=== PATIENT | female | born 1995 | race Hispanic/Latino ===

== ENCOUNTER 2018-04-06 02:18 | Emergency (ER) | payer OTHER ==
[~2018-04-06] VITALS: Ht 149.9 cm; Wt 49.9 kg
[~2018-04-06 02:18] MED LIST: BUTALB-ACETAMI1 EACH PO; NAPROSYN500 M1 PO; ZOFRAN ODT4 M1 SL
--- NOTE | 2018-04-06 02:40 | ED GI/GU/ABDOMINAL COMPLAINT ---
History of Present Illness General Chief Complaint: Nausea, Vomiting, Diarrhea Stated Complaint: NAUSEA,VOMITING,DIZINESS PER PT Source: patient Exam Limitations: no limitations Vital Signs & Intake/Output Vital Signs & Intake/Output Vital Signs Date Time Temp Pulse Resp B/P B/P Pulse O2 O2 Flow FiO2 Mean Ox Delivery Rate 04/06 0418 98.6 67 18 106/7 98 Room Air 04/06 0227 84 20 116/79 97 Room Air Allergies Coded Allergies: No Known Allergies (04/01/18) Reconcile Medications Cyclobenzaprine HCl 10 MG TABLET 1 TAB PO 4 TIMES/DAY PRN MUSCLE SPASM Ibuprofen 600 MG TABLET 1 TAB PO TID PRN headache with food Triage Note: PER PT CO NAUSEA ON AND OFF FOR A COUPLE WEEKS DENIES VOMITING FEVER DIARRHEA NO URINE CO LMP 1 WEEK AGO NORMAL Triage Nurses Notes Reviewed? yes ? N Is pt currently ? No Onset: Gradual Duration: day(s):, waxing and waning Timing: recent history Location: NO ABDOMINAL PAIN Radiation: no radiation Modifying Factors: Worsens With: vomiting. Associated Symptoms: headache, nausea/vomiting HPI: 22 yo woman presents with nausea and headache for more than a week, intermittent. She notes that she vomited 1. She notes occasional photophobia. She has no vision change fever chills stiff neck. She notes that this is similar to prior headaches she has had in the past. She has no stuffy nose, sinus pressure, ear pain, dyspnea, fever. She is otherwise well and has no other concerns. Past History Travel History Traveled to [place] past 21 day No Medical History Any Pertinent Medical History? 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 No Review of Systems Review of Systems Constitutional: Reports: no symptoms. EENTM: Reports: no symptoms. Respiratory: Reports: no symptoms. Cardiovascular: Reports: no symptoms. GI: Reports: no symptoms. Genitourinary: Reports: no symptoms. Musculoskeletal: Reports: no symptoms. Skin: Reports: no symptoms. Neurological/Psychological: Reports: no symptoms. Hematologic/Endocrine: Reports: no symptoms. Immunologic/Allergic: Reports: no symptoms. All Other Systems: Reviewed and Negative Physical Exam Physical Exam General Appearance: well developed/nourished, mild distress Head: normal appearance, DIFFUSE SCALP MUSCULATURE TENDERNESS TO PALPATION Eyes: Bilateral: normal appearance, PERRL, EOMI. Ears, Nose, Throat, Mouth: hearing grossly normal, moist mucous membrane Neck: normal inspection, supple, full range of motion, normal alignment Respiratory: normal breath sounds, chest non-tender, no respiratory distress, quiet respiration, lungs clear Cardiovascular: regular rate/rhythm Gastrointestinal: normal bowel sounds, soft, non-tender, no organomegaly Back: normal inspection Extremities: normal range of motion Neurologic/Psych: no motor/sensory deficits, awake, alert, oriented x 3 Skin: intact, normal color, warm/dry Core Measures ACS in differential dx? No Sepsis Present: No Sepsis Focused Exam Completed? No Progress Differential Diagnosis: TENSION VS MIGRAINE VS OTHER HEADACHE Plan of Care: Orders Procedure Date/time Status URINE 04/06 231 Complete URINALYSIS 04/06 222 Complete TROPONIN LEVEL 04/06 222 Complete LIPASE 04/06 222 Complete HEPATIC FUNCTION PANEL 04/06 222 Complete CBC WITHOUT DIFFERENTIAL 04/06 222 Complete BASIC METABOLIC PANEL 04/06 222 Complete AMYLASE 04/06 222 Complete Laboratory Tests 04/06/18 0241: Anion Gap 11, Estimated GFR > 60, BUN/Creatinine Ratio 36.0 H, Glucose 100 H, Calcium 9.4, Total Bilirubin 1.6 H, Direct Bilirubin 0, AST 19, ALT 21, Alkaline Phosphatase 99, Troponin I < 0.01, Total Protein 7.5, Albumin 4.4, Amylase 95, Lipase 86, CBC w Diff NO MAN DIFF REQ, RBC 4.38, MCV 91.5, MCH 31.7 H, MCHC 34.6, RDW 13.4, MPV 7.5, Gran % 80.7 H, Lymphocytes % 13.2 L, Monocytes % 5.3, Eosinophils % 0.3, Basophils % 0.5, Absolute Granulocytes 9.0 H, Absolute Lymphocytes 1.5, Absolute Monocytes 0.6, Absolute Eosinophils 0, Absolute Basophils 0.1 04/06/18 0230: Urine Test NEGATIVE 04/06/18 0230: Urine Color YEL, Urine Clarity CLEAR, Urine pH 6.0, Ur Specific [place] >= 1.030 , Urine Protein NEG, Urine Ketones NEG, Urine Nitrite NEG, Urine Bilirubin NEG, Urine Urobilinogen 0.2, Ur Leukocyte Esterase NEG, Ur Microscopic EXAM NOT REQUIRED, Urine Hemoglobin NEG, Urine Glucose NEG Initial ED EKG: none Departure Departure Disposition: HOME OR SELF CARE Condition: Stable Clinical Impression Primary Impression: Headache Secondary Impressions: Nausea Referrals: Patient Has No Primary Care Dr (PCP/Family) Departure Forms: Customer Survey General Discharge Information Prescriptions: Current Visit Scripts Ibuprofen 1 TAB PO TID PRN headache #30 TAB with food Cyclobenzaprine HCl 1 TAB PO 4 TIMES/DAY PRN MUSCLE SPASM #30 TAB Ref 1 Comments 04/06/18, 4:19am.... feeling better.
[2018-04-06 02:52] LABS: ABSOLUTE BASOPHIL COUNT 0.1 /CUMM (0.0-0.2); ABSOLUTE EOSINOPHIL COUNT 0 /CUMM (0.0-0.7); ABSOLUTE LYMPH COUNT 1.5 /CUMM (1.2-3.4); ABSOLUTE MONOCYTE COUNT 0.6 /CUMM (0.10-0.60); BASOPHIL % 0.5 % (0.0-2.0); EOSINOPHIL % 0.3 % (0-5); GRANULOCYTE % 80.7 % (42.2-75.2); HEMATOCRIT 40.1 % (37-47); MEAN CORPUSCULAR HGB 31.7 PG (27.0-31.0); MEAN CORPUSCULAR HGB CONC 34.6 G/DL (33.0-37.0); MEAN CORPUSCULAR VOLUME 91.5 FL (81.0-99.0); MEAN PLATELET VOLUME 7.5 FL (7.4-10.4); PLATELET COUNT 386 /CUMM (130-400); RBC DISTRIBUTION WIDTH 13.4 % (11.5-14.5); RED BLOOD CELL CT 4.38 /CUMM (4.20-5.40); WHITE BLOOD CELL COUNT 11.2 /CUMM (4.8-10.8)
[2018-04-06] MEDS ORDERED: CYCLOBENZAPRINE10 M1 PO (04:10)
[2018-04-06] MEDS ORDERED: IBUPROFEN600 M1 PO (04:10)
[2018-04-06 04:18] VITALS: BP 106/7
== END 2018-04-06 04:37 ==
LOC: ERH 02:18
PROVIDERS: Pediatrics
DX: R51 Headache (principal); R11.2 Nausea with vomiting, unspecified; H53.149 Visual discomfort, unspecified
CPT/HCPCS: 81003; 81025; 96361; 96374; 96375; J0131; J1885; J2405